=== PATIENT | female | born 1985 | race Caucasian/White ===

== ENCOUNTER 2019-09-12 13:35 | Emergency (ER) | payer OTHER ==
[~2019-09-12] VITALS: Ht 167.6 cm; Wt 64.9 kg
[2019-09-12 14:18] VITALS: Ht 167.6 cm; Wt 64.9 kg
[2019-09-12 14:59] LABS: UA SPECIFIC GRAVITY 1.015 (1.005-1.035); microscopic required? YES; urine erythrocyte 3+ (NEGATIVE)
[2019-09-12 17:15] VITALS: BP 119/73
== END 2019-09-12 17:18 | disposition home or self-care (01) ==
LOC: ED 13:35
DX: N12 Tubulo-interstitial nephritis, not specified as acute or chronic (principal); Z90.710 Acquired absence of both cervix and uterus
CPT/HCPCS: J0696; J1885